=== PATIENT | male | born 1975 | race Two or more races ===

== ENCOUNTER 2023-01-09 17:43 | Inpatient (IN) | payer BC, MEDICAID ==
[~2023-01-09] VITALS: Ht 177.8 cm; Wt 92.2 kg
[2023-01-09 18:37] LABS: BASOPHILS % (AUTO) 1.1 % (0.0-2.0); EOSINOPHILS % (AUTO) 2.7 % (1.0-6.0); HEMATOCRIT 40.3 % (41-53); HEMOGLOBIN 13.8 g/dL (13.5-17.5); LYMPHOCYTES # (AUTO) 2.2 K/uL (1.0-4.8); LYMPHOCYTES % (AUTO) 32.6 % (22.0-44.0); MEAN CORPUSCULAR HEMOGLOBIN 30.1 pg (26.0-34.0); MEAN CORPUSCULAR HGB CONC 34.2 G/dL (31.0-37.0); MEAN CORPUSCULAR VOLUME 88 fL (80-100); MONOCYTES # (AUTO) 0.3 K/uL (0.1-1.0); MONOCYTES % (AUTO) 3.7 % (2.0-9.0); NEUTROPHILS # (AUTO) 4.1 K/uL (1.8-7.7); NEUTROPHILS % (AUTO) 59.9 % (40.0-70.0); PLATELET COUNT (AUTO) 227 K/uL (150-450); RED BLOOD CELL COUNT(AUTO) 4.57 MIL/uL (4.50-5.90); RED CELL DISTRIBUTION WIDTH 13.3 % (11.5-14.5); WHITE BLOOD COUNT (AUTO) 6.9 K/uL (4.5-11.0)
[2023-01-09 18:46] LABS: ANION GAP 4 mmol/L (8-16); CALCIUM, TOTAL 8.4 mg/dL (8.8-10.5); CARBON DIOXIDE 33 mmol/L (22-29); CHLORIDE 104 mmol/L (98-107); CREATININE 1.07 mg/dL (0.60-1.30); GLOMERULAR FILTR. RATE CALC > 60 mL/min (>60); GLUCOSE,RANDOM 102 mg/dL (70-110); POTASSIUM 3.7 mmol/L (3.5-5.1); SODIUM SERUM 141 mmol/L (136-145); UREA NITROGEN, BLOOD 12 mg/dL (7-18)
[2023-01-09 18:52] LABS: ALANINE AMINOTRANSFERASE 36 U/L (12-78); ALBUMIN 3.4 g/dL (3.4-5.0); ALKALINE PHOSPHATASE 76 U/L (46-116); ASPARTATE AMINOTRANSFERASE 17 U/L (15-37); BILIRUBIN,TOTAL 0.2 mg/dL (0.1-1.0)
[2023-01-09 19:01] LABS: ALCOHOL, BLOOD (SERUM) 198 mg/dL (0-10)
[2023-01-09 19:27] LABS: COVID AG,FIA SOURCE NASAL SWAB
[2023-01-09 19:35] LABS: ALCOHOL, URINE DRUG SCREEN POSITIVE (NEGATIVE); AMPHET/METH SCREEN,URINE NEGATIVE (NEGATIVE); BARBITURATE SCREEN, URINE NEGATIVE (NEGATIVE); BENZODIAZEPINES SCREEN,URINE POSITIVE (NEGATIVE); CANNABINOID SCREEN,URINE NEGATIVE (NEGATIVE); COCAINE SCREEN,URINE NEGATIVE (NEGATIVE); METHADONE SCREEN, URINE NEGATIVE (NEGATIVE); OPIATE SCREEN,URINE NEGATIVE (NEGATIVE); PHENCYCLIDINE SCREEN,URINE NEGATIVE (NEGATIVE)
[2023-01-09 19:47] LABS: SARS-COV2 (COVID) ANTIGEN,FIA Negative (Negative)
[2023-01-09] MEDS ORDERED: LORazepam 2 MG TABLET PO PRN (20:00)
[2023-01-09] MEDS ORDERED: ZOLPIDEM TARTRATE 10 MG TABLET PO PRN (20:00)
[2023-01-09] MEDS ORDERED: HALOPERIDOL 5 MG TABLET PO PRN (20:00)
[2023-01-09 21:30] VITALS: BP 130/82; PULSE 97; RESP 18; TEMP 98
[2023-01-10] MEDS ORDERED: INFLUENZA VIRUS VACCINE QVS 2023-24 (6MO+)/PF 60 MCG/0.5 ML SYRINGE IM. ONE (04:15)
[2023-01-10 10:18] VITALS: BP 114/77; PULSE 80; RESP 18; TEMP 97.8
[2023-01-10] MEDS: CITALOPRAM HYDROBROMIDE 20 MG TABLET PO SCH (14:44)
[2023-01-10] MEDS ORDERED: ROSUVASTATIN CALCIUM 10 MG TABLET PO SCH ×2 (17:00→21:00)
[2023-01-10 20:30] VITALS: BP 114/70; PULSE 66; RESP 20; TEMP 97.2
[2023-01-10] MEDS ORDERED: OMEPRAZOLE 20 MG CAPSULE PO PRN (22:45)
[2023-01-10] MEDS ORDERED: LOPERAMIDE HCL 2 MG CAPSULE PO PRN (22:45)
[2023-01-10] MEDS ORDERED: MAG HYDROX/ALUMINUM HYD/SIMETH ES 30 ML SUSPENSION UDCUP PO PRN (22:45)
[2023-01-10] MEDS ORDERED: ONDANSETRON HCL 4 MG TABLET PO PRN (22:45)
[2023-01-10] MEDS ORDERED: ALBUTEROL SULFATE HFA 90 MCG/PUFF 8 GM INHALER IH PRN (22:45)
[2023-01-10] MEDS ORDERED: BACITRACIN 28 GM OINTMENT TP PRN (22:45)
[2023-01-10] MEDS ORDERED: DOCUSATE SODIUM 100 MG CAPSULE PO PRN (22:45)
[2023-01-10] MEDS ORDERED: MAGNESIUM HYDROXIDE SUSPENSION 30 ML UDCUP PO PRN (22:45)
[2023-01-10] MEDS ORDERED: IBUPROFEN 600 MG TABLET PO PRN (22:45)
[2023-01-10] MEDS ORDERED: CloNIDine HCL 0.1 MG TABLET PO PRN (22:45)
[2023-01-10] MEDS ORDERED: BENZOCAINE/MENTHOL LOZENGE PO PRN (22:45)
[2023-01-10] MEDS ORDERED: PETROLATUM,WHITE 28 GM JELLY TP PRN (22:45)
[2023-01-10] MEDS ORDERED: ACETAMINOPHEN 325 MG TABLET PO PRN (22:45)
[2023-01-11] MEDS: LEVOTHYROXINE SODIUM 88 MCG TABLET PO SCH (06:33)
[2023-01-11] MEDS: NALTREXONE HCL 50 MG TABLET PO SCH (08:10)
[2023-01-11] MEDS: CITALOPRAM HYDROBROMIDE 20 MG TABLET PO SCH (08:10)
[2023-01-11] MEDS: ROSUVASTATIN CALCIUM 10 MG TABLET PO SCH (08:10)
[2023-01-11 08:24] VITALS: BP 99/63; PULSE 74; RESP 17; TEMP 97.6
[2023-01-11 08:40] LABS: HEMOGLOBIN A1C 5.7 % (3.8-5.6)
[2023-01-11 09:15] LABS: CHOL/HDL RATIO 3.7 (4.2-7.3); FREE T4 (FREE THYROXINE) 1.03 ng/dL (0.76-1.46); THYROID STIMULATING HORMONE 2.32 uIU/mL (0.36-3.74)
[2023-01-11 20:14] VITALS: BP 110/73; PULSE 90; RESP 18; TEMP 97.3
[2023-01-12] MEDS: LEVOTHYROXINE SODIUM 88 MCG TABLET PO SCH (06:39)
[2023-01-12 08:23] VITALS: BP 111/67; PULSE 68; RESP 18; TEMP 97.8
[2023-01-12] MEDS: NALTREXONE HCL 50 MG TABLET PO SCH (08:42)
[2023-01-12] MEDS: CITALOPRAM HYDROBROMIDE 20 MG TABLET PO SCH (08:42)
[2023-01-12] MEDS: ROSUVASTATIN CALCIUM 10 MG TABLET PO SCH (08:43)
== END 2023-01-12 14:10 | disposition home or self-care (01) | DRG 754 ==
LOC: EMS 17:44 → 3EC 20:46
PROVIDERS: ADMIT Psychiatry & Neurology Psychiatry; ATTEND Psychiatry & Neurology Psychiatry
DX: F32.9 Major depressive disorder, single episode, unspecified (principal); R45.851 Suicidal ideations; E03.9 Hypothyroidism, unspecified; I10 Essential (primary) hypertension; F41.9 Anxiety disorder, unspecified; G47.00 Insomnia, unspecified; F10.90 Alcohol use, unspecified, uncomplicated; Z20.822 Contact with and (suspected) exposure to COVID-19; E78.5 Hyperlipidemia, unspecified; E66.9 Obesity, unspecified; Z98.84 Bariatric surgery status; Z68.29 Body mass index [BMI] 29.0-29.9, adult
CPT/HCPCS: 80053; 80061; 80307; 83036; 84439; 84443; 85025; 99285; G0480